=== PATIENT | female | born 1990 | race African-American/Black ===

== ENCOUNTER 2025-05-21 15:03 | Outpatient (CLI) | payer BC | END 2025-05-21 15:04 | disposition home or self-care (01) | LOC: CSHULT 15:03 | PROVIDERS: ATTEND Internal Medicine Hematology & Oncology | DX: C50.811 Malignant neoplasm of overlapping sites of right female breast (principal); D70.1 Agranulocytosis secondary to cancer chemotherapy | CPT/HCPCS: 93306 ==

== ENCOUNTER 2025-06-05 12:10 | Outpatient (CLI) | payer BC ==
[2025-06-05 12:56] LABS: #Basophils 0.06 10x3/uL (0.0-0.2); #Eosinophils Less than 0.03 10x3/uL (0.0-0.5); #Monocytes 0.60 10x3/uL (0.0-1.1); #Neutrophils 2.69 10x3/uL (1.5-8.4); %Basophils 1.1 % (0.0-2.0); %Eosinophils 0.2 % (0.0-6.0); %Lymphocytes 36.4 % (18.0-47.0); %Monocytes 11.3 % (0.0-10.0); %Neutrophils 50.8 % (40.0-75.0); Hematocrit 36.0 % (34.9-44.5); Hemoglobin 11.1 g/dL (12.0-15.5); Mean Corpuscular Hemoglobin 32.6 pg (27.0-33.0); Mean Corpuscular Volume 105.9 fL (81.6-98.3); Platelet Count 170 10x3/uL (150-450); Red Blood Cell (RBC) Count 3.40 10x6/uL (3.90-5.03); White Blood Cell (WBC) Count 5.30 10x3/uL (3.5-10.5)
[2025-06-05 13:09] LABS: BHCG - Serum Negative (NEGATIVE); Pregs Control Background? CLEAR/WHITE (CLR/WHITE); Pregs Control Bar Appear? YES (CONTROL BAR)
[2025-06-05 13:13] LABS: Anion Gap 12 mmol/L (10-20); BUN (Urea Nitrogen) 20 mg/dL (7.0-18.7); Calc. Creatinine Clearance 0 mL/min (70-130); Calcium 8.8 mg/dL (7.8-10.44); Carbon Dioxide 23 mmol/L (22-29); Chloride 111 mmol/L (98-107); Glucose 90 mg/dL (70-105); Potassium 3.8 mmol/L (3.5-5.1); Sodium 142 mmol/L (136-145)
== END 2025-06-05 12:11 | disposition home or self-care (01) ==
LOC: CSHLAB 12:10
PROVIDERS: ATTEND Specialist
DX: Z01.818 Encounter for other preprocedural examination (principal); C50.911 Malignant neoplasm of unspecified site of right female breast
CPT/HCPCS: 80048; 84703; 85025; 93005; 93010

== ENCOUNTER → 2025-06-21 | Day surgery (SDC) | payer BC ==
[2025-06-05 12:32] VITALS: BMI 45.6
[~2025-06-21] MED LIST: Acetaminophen 500 MG TAB ONE; Bupivacaine/Epinephrine 0.25% 30 ML VIAL ONE; CEFAZOLIN 2 GM VIAL ONE; Ketorolac Tromethamine 30 MG (1 mL) VIAL ONE; Lidocaine 1% PF 5 ML VIAL ONE; Ondansetron PF 4 MG/2 ML Vial ONE; PROPOFOL 20 ML ONE; Rocuronium Bromide 10 MG/ML (10ML VIAL) ONE
== END ==
LOC: CSHSDC 07:15
PROVIDERS: ATTEND Specialist
PROC: 0HBT0ZX Excision of Right Breast, Open Approach, Diagnostic (ICD-10-PCS; principal; 2025-06-21)
PROC: 0HBT0ZZ Excision of Right Breast, Open Approach (ICD-10-PCS; principal; 2025-06-21)
DX: Z08 Encounter for follow-up examination after completed treatment for malignant neoplasm (principal); Z85.3 Personal history of malignant neoplasm of breast
CPT/HCPCS: 19281; 36416; 76098; 88307; C1713; J1100; J1885; J2405; J2550; J2704